=== PATIENT | male | born 1945 | race Caucasian/White ===

== ENCOUNTER → 2019-05-26 | Outpatient (REF) | payer MEDICARE ==
[2019-05-26 12:56] LABS: CREATININE, URINE 53.9 MG/DL; MALB URINE SIEMENS 38.2 MG/L; MAU/CREAT RATIO 70.8 MCG/MG (0.0-30.0)
== END ==
LOC: M LABDRAW1 09:07
PROVIDERS: ATTEND Nurse Practitioner Family
DX: E11.22 Type 2 diabetes mellitus with diabetic chronic kidney disease (principal); N18.9 Chronic kidney disease, unspecified

== ENCOUNTER → 2021-03-18 | Outpatient (REF) | payer MEDICARE ==
[2021-03-18 18:47] LABS: MALB URINE SIEMENS 11.8 MG/L; MAU/CREAT RATIO 23.6 MCG/MG (0.0-30.0)
== END ==
LOC: M LAB REF 17:07
PROVIDERS: ATTEND Nurse Practitioner Family
DX: E11.22 Type 2 diabetes mellitus with diabetic chronic kidney disease (principal)

== ENCOUNTER → 2023-03-30 | Outpatient (REF) | payer MEDICARE ==
[2023-03-30 19:13] LABS: CREATININE, URINE 89.2 MG/DL
== END ==
LOC: M LAB REF 18:11
PROVIDERS: ATTEND Nurse Practitioner Family
DX: E11.22 Type 2 diabetes mellitus with diabetic chronic kidney disease (principal)